=== PATIENT | male | born 1945 | race Caucasian/White ===

== ENCOUNTER 2023-11-19 19:09 | Emergency (ER) | payer OTHER ==
[~2023-11-19] VITALS: Ht 177.8 cm; Wt 95.3 kg
[2023-11-19 19:25] VITALS: BP_SYST 100; PULSE 83; RESP 16; TEMP 97.1; O2SAT 98
[2023-11-19 20:57] LABS: BASOPHILS % (AUTO) 0.3 % (0.0-2.0); EOSINOPHILS # (AUTO) 0.3 K/uL (0.0-0.4); EOSINOPHILS % (AUTO) 5.1 % (0.0-4.0); HEMATOCRIT 36.6 % (36-54); HEMOGLOBIN 12.7 g/dL (14.0-18.0); LYMPHOCYTES # (AUTO) 1.8 K/uL (1.0-5.5); LYMPHOCYTES % (AUTO) 31.8 % (20.5-51.5); MEAN CORPUSCULAR HEMOGLOBIN 30 pg (27-31); MEAN CORPUSCULAR HGB CONC 35 % (32-36); MEAN CORPUSCULAR VOLUME 85 fL (79.0-98.0); MONOCYTES % (AUTO) 17.3 % (1.7-9.3); NEUTROPHILS # (AUTO) 2.6 K/uL (1.8-7.7); NEUTROPHILS % (AUTO) 45.5 % (40.0-70.0); PLATELET COUNT (AUTO) 138 K/uL (130-430); RED BLOOD CELL COUNT(AUTO) 4.32 MIL/uL (4.2-6.2); WHITE BLOOD COUNT (AUTO) 5.7 K/uL (4.8-10.8)
[2023-11-19 21:09] LABS: ALANINE AMINOTRANSFERASE 67 U/L (12-78); ALBUMIN 2.7 g/dL (3.4-4.8); ANION GAP 8 (5-15); ASPARTATE AMINOTRANSFERASE 61 U/L (10-37); CALCIUM 8.3 mg/dL (8.4-11.0); CARBON DIOXIDE 22 mmol/L (23-29); CHLORIDE 109 mmol/L (98-107); GLUCOSE 118 mg/dL (74-106); POTASSIUM 3.8 mmol/L (3.5-5.1); SODIUM SERUM 139 mmol/L (136-145); TOTAL BILIRUBIN 0.4 mg/dL (0.0-1.0); TOTAL PROTEIN, SERUM 6.5 g/dL (6.4-8.3); UREA NITROGEN, BLOOD 43 mg/dL (8-21)
[2023-11-19 21:11] LABS: BILIRUBIN,DIRECT 0.1 mg/dL (0.0-0.3); LIPASE 72 U/L (16-77)
[2023-11-19] MEDS: MORPHINE 4 MG INJ. 4 MG/ML VIAL IVP ONE (21:13)
[2023-11-19] MEDS: ONDANSETRON HCL 4 MG/2 ML VIAL IVP ONE (21:13)
[2023-11-19 23:27] LABS: BILIRUBIN,URINE NEGATIVE (NEGATIVE); BLOOD, URINE NEGATIVE (NEGATIVE); CLARITY/URINE CLEAR (CLEAR); COLOR,URINE YELLOW (YELLOW); GLUCOSE,URINE NEGATIVE (NEGATIVE); KETONES,URINE NEGATIVE (NEGATIVE); LEUKOCYTE ESTERASE ,URINE NEGATIVE (NEGATIVE); NITRITE, URINE NEGATIVE (NEGATIVE); PH,URINE 5.5 (5.0-8.0); PROTEIN URINE TRACE (NEGATIVE); UROBILINOGEN,URINE 0.2 (0.2-1.0)
[2023-11-19 23:36] LABS: BACTERIA,URINE None Seen /HPF (None Seen); FINE GRANULAR CASTS,URINE 0-10 /LPF (None Seen); HYALINE CASTS, URINE 0-10 /LPF (None Seen); RBC,URINE 0-3 /HPF (0-3); WBC,URINE 0-3 /HPF (0-3)
[2023-11-20] MEDS: DIPHENOXYLATE HCL/ATROP SULF 2.5 MG TAB PO ONE (00:32)
[2023-11-20] MEDS: metroNIDAZOLE 500 MG TABLET PO ONE (00:32)
[2023-11-20] MEDS ORDERED: METR-154 PO (00:34)
[2023-11-20] MEDS ORDERED: LOM2.5 PO (00:34)
[2023-11-20 00:40] VITALS: BP_SYST 129; PULSE 78; RESP 14; TEMP 98; O2SAT 100
== END 2023-11-20 00:45 | disposition home or self-care (01) ==
LOC: SED 19:09
DX: K52.9 Noninfective gastroenteritis and colitis, unspecified (principal); R10.31 Right lower quadrant pain; R11.2 Nausea with vomiting, unspecified; I12.9 Hypertensive chronic kidney disease with stage 1 through stage 4 chronic kidney disease, or unspecified chronic kidney disease; E11.22 Type 2 diabetes mellitus with diabetic chronic kidney disease; N18.9 Chronic kidney disease, unspecified; Z98.61 Coronary angioplasty status
CPT/HCPCS: 99285; 74176; 96374; 80076; 80048; 81001; 83690; 85025; 84484; 36415; 82948; J2405; 81000; 81015